=== PATIENT | female | born 1955 | race Caucasian/White ===

== ENCOUNTER → 2018-01-11 16:38 | Outpatient (CLI) | payer OTHER, SELFPAY ==
[2018-01-11 17:13] LABS: Basophils # 0.1 K/mm3 (0-0.2); Basophils % 0.4 % (0.1-2.0); Eosinophils # 4.7 K/mm3 (0.0-0.4); Eosinophils % 42.3 % (0.1-12.0); Hematocrit 41.5 % (37.0-47.0); Hemoglobin 13.4 g/dL (12.2-16.2); Lymphocytes # 2.3 K/mm3 (0.7-4.5); Lymphocytes % 20.9 K/mm3 (10-50); Mean Corpuscular HGB Conc 32.4 g/dL (31.8-35.4); Mean Corpuscular Hemoglobin 28.1 pg (27.0-31.2); Mean Corpuscular Volume 86.7 fl (81-99); Mean Platelet Volume 6.3 fl (7.4-10.4); Monocytes # 0.3 K/mm3 (0.1-1.0); Monocytes % 2.8 % (1.7-9.3); Neutrophils # 3.8 K/mm3 (1.8-7.8); Neutrophils % 33.5 % (37.0-80.0); Platelet Count 398 K/mm3 (142-424); Red Blood Count 4.78 M/mm3 (4.20-5.40); Red Cell Distribution Width 13.5 % (11.5-17.5); White Blood Count 11.2 K/mm3 (4.8-10.8)
[2018-01-11 20:11] LABS: Alanine Aminotransferase 17 U/L (12-78); Albumin Level 3.6 gm/dL (3.4-5.0); Albumin/Globulin Ratio 1.2 (1.1-1.8); Alkaline Phosphatase 71 U/L (46-116); Anion Gap 9.7 mEq/L (5-15); Aspartate Amino Transferase 12 U/L (15-37); Bilirubin,Total 0.2 mg/dL (0.2-1.0); Blood Urea Nitrogen 14 mg/dL (7-18); Calcium 8.6 mg/dL (8.5-10.1); Carbon Dioxide 27 mmol/L (21.0-32.0); Chloride 105 mmol/L (98-107); Creatinine,Serum 0.64 mg/dL (0.55-1.02); Estimated Glomerular Filt Rate 94 ml/min (>60); GFR (African American) 114 ML/MIN (>60); Globulin 3.1 gm/dl (1.3-3.2); Glucose 93 mg/dL (74-106); Potassium 3.7 mmoL/L (3.5-5.1); Sodium 138 mmol/L (136-145); T4 (Thyroxine) 8.5 ug/dl (4.7-13.3); Total Protein,Serum 6.7 gm/dL (6.4-8.2); Triiodothryronine (T3) Uptake 35 % (31-39)
[2018-01-13 12:35] LABS: Vitamin B12 786 pg/mL (232-1245)
== END ==
PROVIDERS: PCP Internal Medicine Adolescent Medicine; Visit Provider Internal Medicine Adolescent Medicine
DX: G60.9 Hereditary and idiopathic neuropathy, unspecified (principal)
CPT/HCPCS: 36415; 80053; 82607; 83036; 84436; 84443; 84479; 85025

== ENCOUNTER 2018-01-24 11:04 | Outpatient (CLI) | payer OTHER, SELFPAY ==
[2018-01-24 11:30] VITALS: BP 135/79; PULSE 85; RESP 18; TEMP 36.6; O2SAT 97
[2018-01-24 11:50] VITALS: BP 133/74; PULSE 88; RESP 18; O2SAT 97
== END 2018-01-24 11:50 | disposition home or self-care (01) ==
LOC: INF 11:04
PROVIDERS: Visit Provider Internal Medicine Adolescent Medicine
DX: M81.0 Age-related osteoporosis without current pathological fracture (principal)
CPT/HCPCS: 96374; J3489

== ENCOUNTER → 2018-06-21 16:27 | Outpatient (CLI) | payer OTHER, SELFPAY ==
--- NOTE | 2018-06-21 16:33 | XR_ITS ---
XR chest 2V HISTORY: ITS.REASON: BRONCHOPNEUMONIA ORDERING PHYSICIAN: Jason Orellana MD PATIENT AGE: 63 years COMPARISON: None FINDINGS: The cardiomediastinal silhouette and pulmonary vascularity are within normal limits. The lungs are clear without infiltrates, suspicious nodules, or pleural effusions. No acute bony abnormalities. IMPRESSION: Negative chest, no acute finding
== END ==
PROVIDERS: PCP Internal Medicine Adolescent Medicine; Visit Provider Internal Medicine Adolescent Medicine
DX: J18.0 Bronchopneumonia, unspecified organism (principal)
CPT/HCPCS: 71046

== ENCOUNTER → 2018-06-28 10:35 | Outpatient (CLI) | payer OTHER, SELFPAY ==
--- NOTE | 2018-06-28 10:52 | XR_ITS ---
XR hip RT 2-3V w/pelvis HISTORY: Hip pain ITS.REASON: OSTEROARTHRITIS ORDERING PHYSICIAN: Jason Orellana MD PATIENT AGE: 63 years COMPARISON: None FINDINGS: There is a total right hip prosthesis present which is in good position. No evidence of orthopedic complication. Faint lucency is noted along the lateral aspect of the acetabular component. This however was present on 04/15/2015 and may represent subarticular cysts. IMPRESSION: Good alignment status post total right hip prosthesis with no evidence of orthopedic complication
--- NOTE | 2018-06-28 10:52 | XR_ITS ---
XR hip LT 2-3V w/pelvis HISTORY: Pain ITS.REASON: OSTEOARTHRITIS ORDERING PHYSICIAN: Jason Orellana MD PATIENT AGE: 63 years COMPARISON: None FINDINGS: There are minimal osteoarthritic changes of the left hip with slight decrease in the joint space superiorly. No fracture or dislocation. No lytic or blastic change. IMPRESSION: Minimal osteoarthritis of the left hip
== END ==
PROVIDERS: PCP Internal Medicine Adolescent Medicine; Visit Provider Internal Medicine Adolescent Medicine
DX: M16.0 Bilateral primary osteoarthritis of hip (principal)
CPT/HCPCS: 73502

== ENCOUNTER → 2018-10-09 10:33 | Outpatient (CLI) | payer OTHER, SELFPAY ==
--- NOTE | 2018-10-09 10:40 | XR_ITS ---
XR forearm LT 2V HISTORY: ITS.REASON: PULMONARY NODULES ORDERING PHYSICIAN: Jason Orellana MD PATIENT AGE: 63 years COMPARISON: None FINDINGS: There is mild osteopenia. There is no acute fracture. Rheumatoid soft tissue nodules are not well identified. There is narrowing of the radiocarpal joint. IMPRESSION: No acute fracture. Osteopenia. Radiocarpal arthritic change.
--- NOTE | 2018-10-09 10:40 | XR_ITS ---
XR forearm RT 2V HISTORY: ITS.REASON: RHEUMTOID NODULES ORDERING PHYSICIAN: Jason Orellana MD PATIENT AGE: 63 years COMPARISON: None FINDINGS: There is mild osteopenia without acute fracture. Soft tissues are otherwise unremarkable. The rheumatoid nodules are not well visualized by plain film exam. IMPRESSION: No acute fracture. Osteopenia. Narrowing of the radiocarpal joint indicating arthritic change.
== END ==
PROVIDERS: PCP Internal Medicine Adolescent Medicine; Visit Provider Internal Medicine Adolescent Medicine
DX: M06.30 Rheumatoid nodule, unspecified site (principal); M85.832 Other specified disorders of bone density and structure, left forearm; M85.831 Other specified disorders of bone density and structure, right forearm
CPT/HCPCS: 73090